=== PATIENT | female | born 1955 | race Hispanic/Latino ===

== ENCOUNTER → 2025-01-20 | Outpatient (CLI) | payer OTHER ==
--- NOTE | 2025-01-20 22:06 | HMCIMG ---
EXAM: Ultrasound Arterial Doppler ??? Bilateral Lower Extremities CLINICAL HISTORY: Pain in both legs. Evaluation for peripheral arterial disease. TECHNIQUE: Real-time duplex and color Doppler ultrasound examination of bilateral lower extremity arteries with spectral waveform analysis and image documentation. COMPARISON: None provided. FINDINGS: RIGHT LOWER LIMB: ??? Common femoral artery (SANITARIAN AIDE): 67 cm/s, triphasic waveform. ??? Superficial femoral artery (SFA, proximal???distal): 83???95 cm/s, triphasic. ??? Popliteal artery (proximal???distal): 68???71 cm/s, triphasic. ??? Posterior tibial artery (FUR REPAIR INSPECTOR): 82 cm/s. ??? Anterior tibial artery (KARIE, distal): 38 cm/s. ??? Dorsalis pedis artery (DPA): 33 cm/s. ?Distal arteries demonstrate biphasic waveforms. LEFT LOWER LIMB: ??? Common femoral artery (SANITARIAN AIDE): 70 cm/s, triphasic. ??? Superficial femoral artery (SFA, proximal???distal): 100???82 cm/s, triphasic. ??? Popliteal artery (proximal???distal): 52???92 cm/s, triphasic. ??? Posterior tibial artery (FUR REPAIR INSPECTOR): 44 cm/s. ??? Anterior tibial artery (KARIE, distal): 90 cm/s. ??? Dorsalis pedis artery (DPA): 35 cm/s. Distal arteries demonstrate biphasic waveforms. WAVEFORM SUMMARY: Predominantly triphasic proximally with biphasic distal flow in both lower extremities. No focal velocity elevation to suggest hemodynamically significant stenosis. No segmental occlusion visualized. SOFT TISSUES: No focal collection or soft tissue abnormality. IMPRESSION: 1. No hemodynamically significant stenosis or occlusion in the bilateral lower extremity arteries. 2. Normal arterial flow velocities in both lower extremities. 3. Predominantly triphasic waveforms in proximal arteries with biphasic waveforms in distal arteries of both lower extremities, consistent with normal physiological findings. 4. No focal soft tissue abnormalities or collections identified. /[place]
--- NOTE | 2025-01-20 22:18 | HMCIMG ---
EXAM: Ultrasound for Deep Venous Thrombosis (DVT), Bilateral Lower Extremities CLINICAL HISTORY: Leg pain and swelling. Evaluation for deep venous thrombosis. TECHNIQUE: Real-time ultrasound scan of the veins of both lower extremities was performed with color Doppler flow, spectral waveform analysis, and compression maneuvers. COMPARISON: None provided. FINDINGS: DEEP VEINS: The common femoral, superficial femoral, popliteal, and posterior tibial veins, as well as the great saphenous veins (GSVs), demonstrate normal compressibility, color flow, and augmentation throughout. No intraluminal echogenic thrombus is identified. The visualized calf veins appear patent. SOFT TISSUES: No popliteal fossa cyst, soft tissue edema, or other abnormality noted. IMPRESSION: 1. No evidence of deep venous thrombosis in bilateral lower extremities, with normal compressibility, color flow, and augmentation throughout the common femoral, superficial femoral, popliteal, and posterior tibial veins, as well as the great saphenous veins. 2. Patent visualized calf veins. 3. No soft tissue abnormalities, including absence of popliteal fossa cyst or soft tissue edema. /[place]
== END | disposition home or self-care (01) ==
LOC: RAH 10:06
PROVIDERS: ATTEND Internal Medicine
DX: M79.604 Pain in right leg (principal); M79.605 Pain in left leg
CPT/HCPCS: 93925; 93970

== ENCOUNTER 2025-02-01 18:17 | Emergency (ER) | payer OTHER ==
[~2025-02-01] VITALS: Ht 152.4 cm; Wt 78.5 kg
--- NOTE | 2025-02-01 19:04 | HMCIMG ---
EXAM: CT Head Without IV contrast. CLINICAL HISTORY: Fall TECHNIQUE: Axial computed tomography images of the head/brain without intravenous contrast. COMPARISON: None provided. FINDINGS: BRAIN: No evidence of acute hemorrhage. No mass lesion. No CT evidence for acute territorial infarct. No midline shift or extra-axial collections. VENTRICLES: No hydrocephalus. ORBITS: The orbits are unremarkable. SINUSES AND MASTOIDS: The paranasal sinuses and mastoid air cells are clear. BONES: No fracture. SOFT TISSUES: Unremarkable. IMPRESSION: No acute intracranial abnormality. /[place]
--- NOTE | 2025-02-01 19:21 | HMCIMG ---
EXAM: CT Cervical Spine Without IV contrast. CLINICAL HISTORY: fall TECHNIQUE: Axial computed tomography images of the cervical spine without intravenous contrast. Sagittal and coronal reformatted images were generated. COMPARISON: None provided. FINDINGS: ALIGNMENT: Bony alignment is anatomic. DEGENERATIVE CHANGES: Marginal osteophytes at multiple levels. Mildly reduced disc space with disc osteophyte complexes at C4-C5, C5-C6 and C6-C7 level. Degenerative changes in the uncovertebral and facet joints at multiple levels. SOFT TISSUES: The prevertebral soft tissues are within normal limits. BONES: No acute fracture or aggressive appearing osseous lesion. MISCELLANEOUS: Also project imaged out of 0 discussed this with the bottom of the table from struck in in terms IMPRESSION: No acute abnormality. Moderate cervical spondylosis with multilevel degenerative disc disease. /[place]
--- NOTE | 2025-02-01 19:34 | ERN ---
ED Note History of Present Illness Stated Complaint: HEAD INJURY, HEAD LACERATION Chief Complaint: Mechanical Fall Time Seen by MD: 18:19 Time Seen by Midlevel: 18:25 Dictation: 69-year-old female coming in status post ground level fall. States she missed the curb, fell to the left and hit her with the edge of the stairs. Patient denies any LOC, no blood thinners. There is a laceration to the scalp area. And abrasions to the left knee and left elbow. Allergies: Coded Allergies: No Known Allergies (Unverified Allergy, Unknown, 02/01/25) Past Medical History Past Medical History: High Cholesterol Surgical History: None Review of System Dictation Constitutional: Negative for fever,chills, and weight loss Eyes: Negative for injury, pain,redness, and discharge ENT: Negative for injury,pain or swelling Cardiovascular: Negative for chest pain, palpitations, and edema Respiratory: Negative for shortness of breath, cough, and wheezing, Abdomen/GI: Negative for abdominal pain, nausea, vomiting, diarrhea, and constipation Back: Negative for injury and pain : Negative for injury, bleeding and discharge MS/Extremity: Negative for injury and deformity Skin: Negative for rash, and discoloration, laceration to the left side of scalp Neuro: Negative for headache, weakness, numbness, tingling, and seizure Psych: Negative for suicide ideation, homicidal ideation, and hallucinations Review of Systems: was completed Initial Vital Sign VS Vital Signs Date Time Temp Pulse Resp B/P (MAP) Pulse Ox O2 Delivery O2 Flow Rate FiO2 02/01/25 18:18 98.4 100 18 148/82 99 0 02/01/25 19:36 Room Air* 21 Physical Exam Dictation General: awake, alert, NAD Head/Face: Normocephalic, atraumatic Eyes: PERRL, EOMI, vision at baseline ENT: oral cavity clear, TMs clear, no signs of infection Neck: Trachea midline, supple, no nuchal rigidity Cardiovascular: RRR, normal S1/S2, No MRGs, no JVD Respiratory: CTAB, no respiratory distress, No rales or wheezes Abdomen: Soft, non-tender, non-distended, normal bowel sounds, no guarding or rebound. Skin: Warm, dry, normal turgor, no rash, about1 in laceration to the left side of the scalp, heel abrasion to the left knee and left elbow MS/Extremity: Pulses equal, no cyanosis, neurovascular intact, FROM Neuro: COAx4, GCS 15, strength 5/5, CN 2-12 intact, normal cerebellar exam, normal gait, Psych: Normal behavior, mood, and affect normal Results (Laboratory/Radiology) CT Scan Comment: [facility] [address] [place], [place] [address] IMAGING REPORT Signed PATIENT: ANAID ACEVEDO MR#: [id number] : 1955 SEX: F AGE: 69 LOCATION: ED ORDER 22 STATUS: REG ER REPORT#: [id number] SERVICE 21 REASON: fall ORDERING PHYSICIAN: MELANIE NUÑEZ CNP PROCEDURE: HEAD WO - CT HEAD/BRAIN W/O CONTRAST EXAM: CT Head Without IV contrast. CLINICAL HISTORY: Fall TECHNIQUE: Axial computed tomography images of the head/brain without intravenous contrast. COMPARISON: None provided. FINDINGS: BRAIN: No evidence of acute hemorrhage. No mass lesion. No CT evidence for acute territorial infarct. No midline shift or extra-axial collections. VENTRICLES: No hydrocephalus. ORBITS: The orbits are unremarkable. SINUSES AND MASTOIDS: The paranasal sinuses and mastoid air cells are clear. BONES: No fracture. SOFT TISSUES: Unremarkable. IMPRESSION: No acute intracranial abnormality. /[place] DICTATED BY: JAXSON LEE MD DATE: 02/01/252003 ELECTRONICALLY SIGNED BY: JAXSON LEE MD DATE: 02/01/252003 [facility] [address] [place] [id number] IMAGING REPORT Signed PATIENT: ANAID ACEVEDO MR#: [id number] : 1955 SEX: F AGE: 69 LOCATION: ED ORDER 22 STATUS: REG ER [facility] REPORT#: [id number] SERVICE 21 REASON: fall ORDERING PHYSICIAN: EMLANIE NUÑEZ CNP PROCEDURE: C SPIN WO - CT CERVICAL SPINE W/O CONTRAST EXAM: CT Cervical Spine Without IV contrast. CLINICAL HISTORY: fall TECHNIQUE: Axial computed tomography images of the cervical spine without intravenous contrast. Sagittal and coronal reformatted images were generated. COMPARISON: None provided. FINDINGS: ALIGNMENT: Bony alignment is anatomic. DEGENERATIVE CHANGES: Marginal osteophytes at multiple levels. Mildly reduced disc space with disc osteophyte complexes at C4-C5, C5-C6 and C6-C7 level. Degenerative changes in the uncovertebral and facet joints at multiple levels. SOFT TISSUES: The prevertebral soft tissues are within normal limits. BONES: No acute fracture or aggressive appearing osseous lesion. MISCELLANEOUS: Also project imaged out of 0 discussed this with the bottom of the table from struck in in terms IMPRESSION: No acute abnormality. Moderate cervical spondylosis with multilevel degenerative disc disease. /[place] DICTATED BY: CHRISTINE MASON MD DATE: 02/01/252019 ELECTRONICALLY SIGNED BY: CHRISTINE MASON MD DATE: 02/01/252019 ED Course ED Course Orders Procedure Category Date Status Time Ct Head/Brain W/O CT 02/01/25 Resulted Contrast 18:22 Ct Cervical Spine W/O CT 02/01/25 Resulted Contrast 18:22 Tetanus,Diphtheria PHA 02/01/25 Complete Tox [Adult] (Diphther 18:30 Ct Abdomen/Pelvis W/O CT 02/01/25 Logged Contrast 19:36 Current Medications Medications (Trade) Dose Ordered Sig/Melissa Route PRN Reason Start Time Stop Time Status Last Admin Dose Admin Tetanus/ Diphtheria Toxoids Adsorbed (DiphthERIA-teTANUS TOXOID [ADULT]/ DECAVAC) 0.5 ml ONCE ONCE IM 02/01/25 18:30 02/01/25 18:31 DC 02/01/25 19:31 Vital Signs Date Time Temp Pulse Resp B/P (MAP) Pulse Ox O2 Delivery O2 Flow Rate FiO2 02/01/25 19:36 98.2 86 20 148/87 98 Room Air* 0 21 02/01/25 18:18 98.4 100 18 148/82 99 0 Medical Decision Making MDM MDM: Differential diagnosis: Rationale: Tests considered and ordered secondary to shared decision making include: Previous outside records reviewed: Old ER visits. Risk of complication and/or morbidity or mortality of patient management: None Medications-Per medication reconciliation Need for hospitalization: Patient does not meet criteria for hospitalization. Need for emergency major/minor surgery: No There are no social concerns with this patient. Prescription drug management Prescriptions will include symptomatic care Patient's prior external medical records from other ER visits were reviewed by me as indicated. Prior testing and results from previous visits were reviewed. Prior tests were taken into account with medical decision making and resource utilization, independent historian/historians were used to obtain complete medical history. I independently interpreted the test that were performed, results were reviewed by me and considered findings on radiology if ordered. Medical management and examination interpretation discussions were had by me with other qualified healthcare professionals as indicated for the patient's care. Procedure Wound Location: head Wound Length (cm): 3 Wound's Depth, Shape: superficial Wound Explored: clean Wound Debrided: minimal Wound Repaired With: osmany (3 ) DX & DISP Disposition: Discharge Decision to Admit Date: Feb 01, 2025 Decision to Admit Time: 19:41 Departure Impression: Primary Impression: Fall Additional Impression: Scalp laceration Condition: Stable Additional Instructions: Wash laceration cleaned with soap and water. Return in 7-10 days to remove osmany. You know if any symptoms of infection , dizziness, severe headache, nausea and vomiting in the emergency room. Otherwise follow up with your primary care doctor. Referrals: DANN GARNER (PCP) Time of Disposition: 19:41 I have reviewed the case, and I agree with, Diagnosis and Plan MELANIE NUÑEZ CNP Feb 01, 2025 19:34
[2025-02-01 19:36] VITALS: BP 148/87; PULSE 86; RESP 20; TEMP 98.3; O2SAT 98
== END 2025-02-01 20:31 | disposition home or self-care (01) ==
LOC: EDH 18:17
DX: S01.01XA Laceration without foreign body of scalp, initial encounter (principal); S80.212A Abrasion, left knee, initial encounter; S50.312A Abrasion of left elbow, initial encounter; E78.00 Pure hypercholesterolemia, unspecified; W19.XXXA Unspecified fall, initial encounter; W01.198A Fall on same level from slipping, tripping and stumbling with subsequent striking against other object, initial encounter; Y93.89 Activity, other specified; Y92.89 Other specified places as the place of occurrence of the external cause; Y99.8 Other external cause status
CPT/HCPCS: 99285; 70450; 90714; 72125; 90471; 12002; 96372; J1885